=== PATIENT | female | born 1955 | race Caucasian/White ===

== ENCOUNTER 2019-11-05 18:01 | Emergency (ER) | payer OTHER ==
[~2019-11-05] VITALS: Ht 167 cm; Wt 110.0 kg
[2019-11-05] MEDS ORDERED: fentaNYL INJECTION 100 MCG/2 ML AMP IVP ONE ×2 (18:15→19:45)
--- NOTE | 2019-11-05 18:50 | ED Fall/Injury ---
General Chief Complaint: Upper Extremity Stated Complaint: FALL Nursing Triage Note: THIS IS A SINGLE STORY FALL. THE PT TRIPPED AND FELL TO THE [facility]. ON ARRIVAL BY EMS SHE C/O PAIN TO HER KEFT SCAPULA AREA. THERE IS NO OUTWARD SX OF INJURY VISIBLE. NO LOC IS REPORTED AND THE PT IS NOT TAKING ANY BLOOD THINNERS. THE PT HAS NO OTHER COMPLAINTS. Source: patient, EMS History of Present Illness Date Seen by Provider: Nov 05, 2019 Time Seen by Provider: 17:59 Initial Comments PT AR[facility] VIA EMS [facility] STATES SHE TRIPPED AND FELL ON HER LEFT ARM AND SHOULDER AREA--THINKS HER LEFT ARM WAS BENT BACK AND UNDERNEATH HER AND "WAS BENDING THE WRONG DIRECTION" C/O PAIN TO LEFT SHOULDER AND UPPER ARM AREA NO PAIN IN ELBOW OR DISTALLY. NO PARESTHESIAS OR MOTOR DEFICITS NO DIZZINESS DID HAVE SOME NAUSEA AND EMS GAVE ZOFRAN 8 MG, IN ADDITION TO FENTANYL 50 MCG PRIOR TO ARRIVAL. DID NOT HIT HEAD AND NO LOSS OF CONSCIOUSNESS NO NECK OR BACK PAIN NO HIP OR LEG PAIN NO CHEST OR ABDOMINAL PAIN HAS HAD PRIOR FRACTURE OF LEFT ELBOW--NO SURGERY, AND LATER HAD LEFT ELBOW DISLOCATION--HAD CLOSED REDUCTION, BUT NO SURGERY. NO PROBLEMS WITH LEFT ARM SINCE THEN PT IS RIGHT HANDED. PCP: [facility]UE[facility] Allergies and Home Medications Allergies Coded Allergies: No Known Drug Allergies (Unverified , 11/05/19) Patient Home Medication List Home Medication List Reviewed: Yes Review of Systems Review of Systems Constitutional: no symptoms reported Ears, Nose, Mouth, Throat: no symptoms reported Respiratory: no symptoms reported; No short of breath Cardiovascular: no symptoms reported; No chest pain Gastrointestinal: see HPI; No abdominal pain; nausea; No vomiting Genitourinary: no symptoms reported Musculoskeletal: see HPI; No back pain, No neck pain Skin: no symptoms reported Psychiatric/Neurological: No Symptoms Reported; Denies Headache, Denies Numbness, Denies Paresthesia, Denies Pre-Existing Deficit, Denies Tingling, Denies Weakness Past Vbpslby-Fogvir-Yqnnvn Hx Past Med/Social Hx: Reviewed and Corrections made Patient Social History Alcohol Use: Occasionally Uses Recreational Drug Use: No Smoking Status: Never a Smoker 2nd Hand Smoke Exposure: No Recent Foreign Travel: No Contact w/Someone Who Travel: No Recent Infectious Disease Expo: No Recent Hopitalizations: No Physical Abuse: No Sexual Abuse: No Mistreated: No Fear: No Seasonal Allergies Seasonal Allergies: No Past Medical History Surgeries: Yes (RIGHT WRIST FX/ORIF; HYST/BSO; CHOLECYSTECTOMY) Gallbladder, Hysterectomy, Oophorectomy, Orthopedic Respiratory: No Cardiac: Yes Hypertension Neurological: No Reproductive Disorders: Yes Female Reproductive Disorders: Menstrual Problems [employer] WORK[employer] History: Hysterectomy, Menopausal Genitourinary: No Gastrointestinal: No Musculoskeletal: Yes (RIGHT WRIST FX/ORIF; LEFT ELBOW FX AND LATER DISLOCATION- CLOSED REDUCTION) Endocrine: No HEENT: No Cancer: No Psychosocial: Yes Depression Integumentary: No Blood Disorders: No Physical Exam Vital Signs Vital Signs - First Documented 11/05/19 18:11 Temp 36.6 Pulse 92 Resp 18 B/P (MAP) 145/79 (101) Pulse Ox 100 Capillary Refill : Less Than 3 Seconds Height, Weight, BMI Height: '" Weight: lbs. oz. kg; 39.00 BMI Method: General Appearance: obese HEENT: PERRL/EOMI Neck: non-tender, full range of motion, supple, normal inspection Cardiovascular: normal peripheral pulses, regular rate, rhythm, no edema, no JVD, no murmur Respiratory: chest non-tender, normal breath sounds, no respiratory distress, no accessory muscle use Peripheral Pulses: 2+ Radial Pulses (R), 2+ Radial Pulses (L) Gastrointestinal: normal bowel sounds, non tender, soft Back: no CVA tenderness, no vertebral tenderness, other (TENDERNESS TO SUPERIOR RIDGE OF LEFT SCAPULA, NO DEFORMITY OR EXTERNAL EVIDENCE OF TRAUMA) Extremities: normal capillary refill, other (SEVERE TENDERNESS TO LEFT SHOULDER AND PROXIMAL HALF OF HUMERUS. NO PAIN OR TENDERNESS OR DEFORMITY TO ELBOW OR DISTALLY. DISTAL MOTOR/SENSORY/VASCULAR IS INTACT. UNABLE TO MOVE LEFT ARM AT SHOULDER WITH SOME DEFORMITY AT SHOULDER WITH AC DROP OFF) Neurologic/Psychiatric: sheet heater II-XII nml as tested, no motor/sensory deficits, alert, normal mood/affect, oriented x 3 Skin: normal color, warm/dry; No ecchymosis [place] Coma Score Best Eye Response: (4) Open Spontaneously Best Verbal Response: (5) Oriented Best Motor Response: (6) Obeys Commands [place] Total: 15 Procedures/Interventions Splinting and Joint Reduction : Immobilizers: Large Shoulder Progress/Results/Core Measures Results/Orders My Orders Orders - BO OLIVIA DO Chest 1 View, Ap/Pa Only (11/05/19 18:09) Shoulder, Left, 3 Views (11/05/19 18:09) Humerus, Left, 2 Views (11/05/19 18:09) Fentanyl Injection (Sublimaze Injection (11/05/19 18:15) Shoulder Immoblizer (11/05/19 19:01) Fentanyl Injection (Sublimaze Injection (11/05/19 19:45) Medications Given in ED Current Medications Medications Dose Ordered Sig/Dada Route Start Time Stop Time Status Last Admin Dose Admin Fentanyl Citrate 50 mcg ONCE ONCE IVP 11/05/19 18:15 11/05/19 18:16 DC 11/05/19 18:24 50 MCG Fentanyl Citrate 50 mcg ONCE ONCE IVP 11/05/19 19:45 11/05/19 19:46 DC 11/05/19 19:48 50 MCG Vital Signs/I&O 11/05/19 11/05/19 11/05/19 18:11 19:34 19:56 Temp 36.6 36.6 36.6 Pulse 92 89 80 Resp 18 18 18 B/P (MAP) 145/79 (101) 148/76 (100) 120/80 Pulse Ox 100 99 97 Blood Pressure Mean: 101 Diagnostic Imaging Comments XRAYS: PER RADIOLOGIST REPORTS AT 1903 CXR--NO ACUTE PROCESS, IN CHEST, BUT LEFT SHOULDER FX/DISLOCATION OF HUMERAL HEAD LEFT SHOULDER AND HUMERUS--ANTERIOR OR SUBCORACOID DISLOCATION WITH COMMINUTED FRACTURE OF LEFT HUMERAL HEAD AND NECK, WITH LARGE FRACTURE FRAGMENT SEEN SUPERIORLY Reviewed: Reviewed by Me Departure Communication (Admissions) NO ORTHOPEDIC SERVICES AVAILABLE HERE ALL WEEKEND. 1899--CALLED [facility]--SPOKE WITH DR. RAMIREZ, ER PHYSICIAN, ACCEPTS PT FOR TRANSFER TO ER Impression Primary Impression: S/P FALL FROM STANDING Additional Impression: COMMINUTED FRACTURE AND DISLOCATION OF LEFT HUMERAL HEAD AND NECK Disposition: XFER SHT-TRM HOSP Condition: Stable Transfer Transfer Reason: Exceeds level of care (NO ORTHOPEDIC SERVICES AVAILABLE HERE) Transfer Facility: [facility] Method of Transfer: EMS BO OLIVIA DO Nov 05, 2019 18:50
--- NOTE | 2019-11-05 18:59 | Diagnostic Imaging Report ---
INDICATION: Fall with chest pain. EXAMINATION: PA chest was obtained at 6:35 p.m. FINDINGS: Heart and mediastinal silhouette are normal in appearance. The lungs are clear. There is no pneumothorax or pleural fluid. There is elevation of the right hemidiaphragm. There is a fracture of the left humeral head with subcortical dislocation of the left humeral head. See separate dictation. IMPRESSION: No acute infiltrate, pneumothorax or pleural fluid. Elevation of right hemidiaphragm. Left shoulder fracture dislocation is seen, see separate dictation. Dictated by: Dictated on workstation # [id number]
--- NOTE | 2019-11-05 19:02 | Diagnostic Imaging Report ---
INDICATION: Fall with left shoulder and arm pain AP and lateral views of the left humerus are obtained at 0638 p.m. Comminuted left humeral head and neck fracture is noted with avulsed fragment seen superiorly. There is dislocation of the left glenohumeral joint. See separate dictation for left shoulder. The mid and distal shaft of the left humerus are intact. IMPRESSION: Comminuted left humeral neck and head fracture with avulsed fragment as above as well as dislocation of the left glenohumeral joint. The mid and distal shaft of left humerus are intact. Dictated by: Dictated on workstation # [id number]
--- NOTE | 2019-11-05 19:02 | Diagnostic Imaging Report ---
INDICATION: Left shoulder injury. EXAMINATION: AP, oblique and transscapular views of the left shoulder were obtained at 6:37 p.m. FINDINGS: There is an anterior or subcoracoid dislocation of the left glenohumeral joint. There is a comminuted fracture of the left humeral neck and head with avulsed fragment seen superiorly. AC joint appears intact. IMPRESSION: Anterior or subcoracoid dislocation of left glenohumeral joint. Comminuted fracture of left humeral neck and head, with avulsed fragment seen superiorly. Dictated by: Dictated on workstation # [id number]
[2019-11-05 19:34] VITALS: BP 148/76
--- NOTE | 2019-11-05 19:39 | NUR ---
SHOULDER IMMOBILIZER WAS PLACED ON THE LEFT SHOULDER WITHOUT DIFFICULTY.
--- NOTE | 2019-11-05 19:55 | NUR ---
EMS IS IN THE ROOM. THE PT IS PLACED ON THE COT WITHOUT DIFFICULTY. PT CARE IS GIVEN TO THE EMS CREW.
[2019-11-05 19:56] VITALS: BP 120/80
== END 2019-11-05 19:56 | disposition short-term general hospital (02) ==
LOC: ER 18:03
DX: S42.352A Displaced comminuted fracture of shaft of humerus, left arm, initial encounter for closed fracture (principal); R40.2142 Coma scale, eyes open, spontaneous, at arrival to emergency department; R40.2252 Coma scale, best verbal response, oriented, at arrival to emergency department; R40.2362 Coma scale, best motor response, obeys commands, at arrival to emergency department; Z87.81 Personal history of (healed) traumatic fracture; W01.0XXA Fall on same level from slipping, tripping and stumbling without subsequent striking against object, initial encounter
CPT/HCPCS: 71045; 73030; 73060; 96374; 96376